=== PATIENT | female | born 1965 | race Caucasian/White ===

== ENCOUNTER 2021-11-02 00:36 | Day surgery (SDC) | payer OTHER, SELFPAY ==
[2021-10-27 16:00] VITALS: BMI 44.1
--- NOTE | 2021-11-02 08:24 | WPDANESEPPF ---
Anes - Initial Pre Proc Eval Procedure: Operation Date: 11/02/21 09:30 Proposed Procedures p Esophagogastroduodenoscopy - Robe Moore MD Date/Time: 11/02/21 08:24 Surgeon: Robe Moore MD Pre Op Diagnosis: epigastric pain, nausea Patient Data Age: 56 Gender: F Height: 1.6 m Weight: 113 kg Allergies Allergy/AdvReac Type Severity Reaction Status Date / Time erythromycin base AdvReac Unknown vomiting Verified 11/02/21 07:33 Home Medications Medication Instructions Recorded Confirmed Type duloxetine 60 mg capsule,delayed 60 mg PO BID 09/24/21 10/27/21 History release hydroxyzine HCl 50 mg tablet 50 mg PO QID PRN other 09/24/21 10/27/21 History lamotrigine 25 mg tablet 75 mg PO BID 09/24/21 10/27/21 History losartan 25 mg tablet 12.5 mg PO DAILY 09/24/21 10/27/21 History metformin 500 mg tablet 500 mg PO BID 09/24/21 10/27/21 History pantoprazole 40 mg tablet,delayed 40 mg PO BID 09/24/21 10/27/21 History release propranolol 40 mg tablet 40 mg PO BID 09/24/21 10/27/21 History spironolactone 50 2 tablet PO BID 09/24/21 10/27/21 History mg-hydrochlorothiazide 50 mg tablet tizanidine 4 mg capsule 4 mg PO TID PRN other 09/24/21 10/27/21 History tofacitinib 11 mg tablet,extended 11 mg PO DAILY 09/24/21 10/27/21 History release 24 hr (Xeljanz XR) zolpidem 10 mg tablet 10 mg PO HS PRN Sleep 09/24/21 10/27/21 History aripiprazole 2 mg tablet 2 mg PO HS 10/27/21 10/27/21 History Patient hx anesthesia problems: none Family hx anesthesia problems: none Results Review: All pre-operative results and documents have been reviewed as part of the pre-operative evaluation. [facility] Past Medical History Medical History (Updated 11/02/21 @ 08:25 by Javed Mcgee MD) Anxiety Arthritis Depression Fibromyalgia Hypertension Morbid obesity with BMI of 40.0-44.9, adult Obesity BETH on CPAP Rheumatoid arthritis Surgical History Surgical History (Updated 09/24/21 @ 13:22 by Alethea Sawyer MA) H/O sinus surgery History of History of carpal tunnel surgery History of cholecystectomy Family History Family History (Updated 09/24/21 @ 13:24 by Alethea Sawyer MA) Father Cerebrovascular accident Mother Hypertension Depression Social History Social History (Updated 09/24/21 @ 13:24 by Alethea Sawyer MA) Smoking status: Former smoker Tobacco type: cigarettes Alcohol intake: former Substance use: never Living arrangements: with family Spiritual care concerns: No Anes - Eval Final PreProcedure Day of Procedure 11/02/21 08:24 Patient weight: morbidly obese Heart: regular rate and rhythm Lungs: clear to auscultation and normal air movement Airway: Mallampati scale class II Neurological: alert and oriented Last oral intake: >/= 8 hours ASA classification: III Emergent: no Anesthetic plan: proceed Anesthesia type and monitoring: general GIVS Results Review: All pre-operative results and documents have been reviewed as part of the pre-operative evaluation. Informed Consent: The patient's anesthetic plan and its attendant risks and benefits were discussed with the patient/family/POA. Questions were solicited and answers provided to the satisfaction of the patient/family/POA.
[2021-11-02 08:56] VITALS: BP 126/77; PULSE 72; RESP 18; TEMP 36.1; O2SAT 98
[2021-11-02] MEDS: LACTATED RINGERS 1,000 ML 150 ML IV CONT (09:02)
--- NOTE | 2021-11-02 09:15 | PM.HPGS ---
History of Present Illness History of Present Illness Consent: Risks, benefits, and alternatives have been discussed and questions answered. Patient agrees to proceed with procedure. Chief complaint: epigastric pain, nausea Narrative: Shanika Nettles is a 56 year old female with post-prandial nausea, belching and bloating, ppi not helping. Never had egd. Review of Systems Constitutional: Constitutional: Denies headache(s) and Denies weakness Eyes: Eyes: Denies blurry vision ENT: Reports Normal hearing present, Denies headache(s) and Denies neck pain Cardiovascular: Cardiovascular: Denies chest pain and Denies dyspnea Respiratory: Respiratory: Denies dyspnea Gastrointestinal: Gastrointestinal: Reports no additional gastrointestinal complaints Genitourinary: Genitourinary: Denies dysuria Musculoskeletal: Musculoskeletal: Denies neck pain Integumentary/Breasts: Skin/Breast: Denies dry skin Neurologic: Reports Normal hearing present, Denies headache(s) and Denies weakness Psychiatric: Psychiatric: Denies anxiety Endocrine: Endocrine: Denies change in body appearance Hematologic/Lymphatic: Hematologic/Lymphatic: Denies easy bleeding Allergic/Immunologic: Allergic/Immunologic: Denies urticaria PMFSH Past Medical History Medical History (Updated 11/02/21 @ 09:16 by Robe Moore MD) Anxiety Arthritis Bloating Depression Fibromyalgia Hypertension Morbid obesity with BMI of 40.0-44.9, adult Nausea Obesity BETH on CPAP Rheumatoid arthritis Surgical History Surgical History (Updated 09/24/21 @ 13:22 by Alethea Sawyer MA) H/O sinus surgery History of History of carpal tunnel surgery History of cholecystectomy Family History Family History (Updated 09/24/21 @ 13:24 by Alethea Sawyer MA) Father Cerebrovascular accident Mother Hypertension Depression Social History Social History (Updated 09/24/21 @ 13:24 by Alethea Sawyer MA) Smoking status: Former smoker Tobacco type: cigarettes Alcohol intake: former Substance use: never Living arrangements: with family Spiritual care concerns: No Meds Home Medications and Allergies Home Medications Medication Instructions Recorded Confirmed Type duloxetine 60 mg capsule,delayed 60 mg PO BID 09/24/21 10/27/21 History release hydroxyzine HCl 50 mg tablet 50 mg PO QID PRN other 09/24/21 10/27/21 History lamotrigine 25 mg tablet 75 mg PO BID 09/24/21 10/27/21 History losartan 25 mg tablet 12.5 mg PO DAILY 09/24/21 10/27/21 History metformin 500 mg tablet 500 mg PO BID 09/24/21 10/27/21 History pantoprazole 40 mg tablet,delayed 40 mg PO BID 09/24/21 10/27/21 History release propranolol 40 mg tablet 40 mg PO BID 09/24/21 11/02/21 History spironolactone 50 2 tablet PO BID 09/24/21 10/27/21 History mg-hydrochlorothiazide 50 mg tablet tizanidine 4 mg capsule 4 mg PO TID PRN other 09/24/21 10/27/21 History tofacitinib 11 mg tablet,extended 11 mg PO DAILY 09/24/21 10/27/21 History release 24 hr (Xeljanz XR) zolpidem 10 mg tablet 10 mg PO HS PRN Sleep 09/24/21 10/27/21 History aripiprazole 2 mg tablet 2 mg PO HS 10/27/21 10/27/21 History Allergies Allergy/AdvReac Type Severity Reaction Status Date / Time erythromycin base AdvReac Unknown vomiting Verified 11/02/21 08:53 Vital Signs Vital Signs - 24 hr 11/02/21 08:56 Temperature 97.0 F L Pulse Rate 72 Respiratory Rate 18 Blood Pressure 126/77 Pulse Oximetry 98 Oxygen Delivery Room Air Exam Const: General: comfortable and no acute distress HENMT: General nose exam: Normal nares present Eyes: General: appearance normal, both eyes and all related structures Neck: Neck: no JVD Resp: Auscultation: clear to auscultation bilaterally Cardio: Rate: regular rate Rhythm: regular rhythm GI: Inspection: non-distended GI Palp: Yes Soft to palpation Skin: General skin exam: normal color Neuro: General: gait
[2021-11-02 09:28] VITALS: BP 104/64; PULSE 74; RESP 18; O2SAT 97
[2021-11-02 09:38] VITALS: BP 104/63; PULSE 71; RESP 18; O2SAT 97
[2021-11-02 09:48] VITALS: BP 103/60; PULSE 65; RESP 18; O2SAT 100
== END 2021-11-02 09:53 | disposition home or self-care (01) ==
PROVIDERS: PCP Family Medicine; Visit Provider Internal Medicine Gastroenterology
PROC: 0DJ08ZZ Inspection of Upper Intestinal Tract, Via Natural or Artificial Opening Endoscopic (ICD-10-PCS; CPT 43235; principal; 2021-11-02 09:30)
DX: K29.50 Unspecified chronic gastritis without bleeding (principal); K20.80 Other esophagitis without bleeding; Z79.84 Long term (current) use of oral hypoglycemic drugs; F41.8 Other specified anxiety disorders; I10 Essential (primary) hypertension; M06.9 Rheumatoid arthritis, unspecified; G47.33 Obstructive sleep apnea (adult) (pediatric); M79.7 Fibromyalgia; E66.01 Morbid (severe) obesity due to excess calories; Z68.41 Body mass index [BMI] 40.0-44.9, adult; Z87.891 Personal history of nicotine dependence
CPT/HCPCS: 43239; 88305; 88342; J2704; J7120

== ENCOUNTER 2021-11-24 08:47 | Outpatient (CLI) | payer OTHER, SELFPAY ==
--- NOTE | ~2021-11-24 | NM_ITS ---
EXAM: NM gastric emptying study DATE: 11/24/2021 14:00 CDT INDICATION: Nausea TECHNIQUE: A gastric emptying study was performed using the methodology of Celeste VALLEJO, et al. J Nucl Med 2007; 48:568-572. The patient was given a meal consisting of 2 scrambled eggs labeled with 1.1 m Ci Tc-99m sulfur colloid, 2 slices of toast, two packages of jam, and approximately 120 mL of water. Simultaneous anterior and posterior 1-min images of the abdomen were obtained with the patient supine at multiple time points over a total period of 4 hours. The geometric mean of anterior and posterior views was determined, and the percentage retention was calculated for each time point. COMPARISON: None. FINDINGS: Gastric retention of the radiotracer-labeled meal was 52%, 34%, and 2% at the 1-hour, 2-ho ur, and 4-hour time points, respectively. With this technique, apparent rapid gastric emptying is sug gested by <30% gastric retention at 1 hour. Delayed gastric emptying is defined by gastric retention of >90% at 1 hour, >60% retention at 2 hours, or >10% retention at 4 hours. IMPRESSION: 1. Normal gastric emptying. Reviewed, dictated and finalized at location A. IMPRESSION: 1. Normal gastric emptying.
== END 2021-11-24 08:48 | disposition home or self-care (01) ==
PROVIDERS: PCP Family Medicine; Visit Provider Internal Medicine Gastroenterology
DX: R11.0 Nausea (principal); R14.0 Abdominal distension (gaseous)
CPT/HCPCS: 78264; A9541

== ENCOUNTER 2024-12-28 09:33 | Outpatient (CLI) | payer OTHER, SELFPAY ==
--- NOTE | ~2024-12-28 | XR_ITS ---
EXAMINATION: XR UGIAC w barium swallow DATE: 12/28/2024 10:24 INDICATION: Gastroesophageal reflux disease without esophagitis TECHNIQUE: The patient drank thick barium, gas-producing crystals, and thin barium. Fluoroscopic spot radiographs of the hypopharynx, esophagus, stomach and proximal small bowel were obtained. A total o f 1478 fluoroscopic images were recorded. Fluoroscopy exposure time was 2.4 minutes. Total DAP was 17 .5 Gycm^2. COMPARISON: None. FINDINGS: The pharynx is symmetric and without evidence of mass lesion or mucosal irregularity. The esophagus i s normal without mass or stricture. Esophageal motility is normal. Small sliding-type hiatal hernia w ith gastric esophageal junction approximately 4 cm above the diaphragm. There was no gastroesophageal reflux with provocative maneuvers. The stomach and proximal small bowel are normal. IMPRESSION: 1. Small sliding-type hiatal hernia without gastroesophageal reflux with provocative maneuvers. Reviewed, dictated and finalized at location A. IMPRESSION: 1. Small sliding-type hiatal hernia without gastroesophageal reflux with provoc ative maneuvers.
--- OUTSIDE RECORDS SUMMARY | 2024-12-28 09:36 | XMS_ITS | Clinical Summary ---
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 Pulse 86 05/21/2016 9:30 AM MANUFACTURING TEAM MEMBER Temperature - - Respiratory Rate - - Oxygen Saturation - - Inhaled Oxygen Concentration - - Weight 108.9 kg (240 lb 3 oz) 05/21/2016 9:30 AM MANUFACTURING TEAM MEMBER Height 160 cm (5' 3) 05/21/2016 9:30 AM MANUFACTURING TEAM MEMBER Body Mass Index 42.55 05/21/2016 9:30 AM MANUFACTURING TEAM MEMBER Plan of Treatment Health Maintenance Due Date Last Done Comments Cervical Cancer Screening Pa p Smear (Age 30 to 64) Every 3 Years 1964 Colorectal Cancer Screening Colonoscopy (10 Years) 1964 Annual Physical 1967 Hepatitis C 1982 DTaP, Tdap and Td Vaccines ( 1 - Tdap) 1983 Cervical Cancer Screening Pa p with HPV Testing (Age 30 to 64) Every 5 Years 1994 Cervical Cancer Screening with HPV 1994 Mammogram Screening 2004 Pneumococcal Vaccine: 50+ Ye ars (1 of 1 - PCV) 2014 Zoster Vaccines (1 of 2) 2014 COVID-19 Vaccine ( - 2023-2 5 season) 2024 RSV Immunization or 60+ Years (1 - 1-dose 75+ series) 2039 Meningococcal B Vaccine Aged Out No l onger eligible based on patient's age to complete this topic Meningococcal Vaccine Aged Out No ramon carlos eligible based on patient's age to complete this topic RSV Immunizations Under 20 Months Aged Out No longer eligible based on patient's age to complete this topic Care Teams Machine Clothing Replacer Relationship Specialty Start Date End Date Millicent Schwab MD [address] [place] [address] [place] [address] PCP - General 08/12/14
--- OUTSIDE RECORDS SUMMARY | 2024-12-28 09:36 | XMS_ITS | Referral Summary ---
Author Organization [facility] Address [address] [place] [address] Care Team Providers Care Communication Electronic Technician Name Role Phone Tiffanie Juares Primary Care Provider [phone] Allergies Active Allergy Reactions Criticality Noted Date Comments Erythromycin Nausea only,Vomiting Reaction: Nausea, Vomiting, Medications levothyroxine sodium (TIROSINT) 25 mcg capsule take 1 capsule by oral route every day 0 0 6 Active Additional Information Patient not taking.Reported on 12/28/2023 etanercept (ENBREL) 50 mg/mL (0.98 mL) injection inject 1 milliliter by subcutaneous route every week 4 Syringe 5 4 Active Additional Information Patient not taking.Reported on 12/28/2023 oxyCODONE-acet aminophen (PERCOCET) 5-325 mg per tablet take 1 by Oral route 3 times every day as needed 90 0 4 Active Additional Information Patient not taking.Reported on 12/28/2023 predniSONE (DELTASONE) 10 mg tablet take 1 tablet by oral route every day 30 1 7 Active Additional Information Patient not taking.Reported on 12/28/2023 etanercept (ENBREL) 50 mg/mL (0.98 mL) injection inject 1 milliliter by subcutaneous route every week 4 Syringe 11 4 Active Additional Information Patient not taking.Reported on 12/28/[address] (CYMBALTA) 60 mg capsule take 2 capsule by oral route every day 60 6 4 Active progesterone 50 mg/mL injection inject 0.1 milliliter by intramuscular route every day 0 vial 0 3 Active Additional Information Patient not taking.Reported on 12/28/2023 estradiol (ESTRACE) 2 mg tablet take 1 tablet by oral route every day 0 0 3 Active estradiol-nore thindrone (MIMVEY LO) 0.5-0.1 mg per tablet take 1 tablet by oral route every day 0 0 4 Active hydroCHLOROthi azide (HYDRODIURIL) 25 mg tablet take 1 tablet by oral route every day 0 0 4 Active mirtazapine (REMERON) 45 mg tablet take 1 tablet by oral route every day before bedtime 0 0 4 Active Additional Information Patient not taking.Reported on 12/28/2023 metoprolol XL (TOPROL-XL) 200 mg 24 hr tablet take 1 tablet by oral route every day 0 0 4 Active cholestyramine (QUESTRAN) 4 gram powder take 8 grams by oral route TID for 11 days 264 0 5 Active predniSONE (DELTASONE) 5 mg tabletIndicati ons:Rheumatoid arthritis of multiple sites without rheumatoid factor (HCC) 3 po daily for 7 days, 2 po daily for 7 days, 1 po daily for 7 days 42 tablet [address] (CYMBALTA) 60 mg capsule TAKE TWO CAPSULES BY MOUTH ONCE DAILY 60 capsule 5 7 Active tofacitinib (XELJANZ XR) 11 mg tablet extended release 24 hr Take 11 mg by mouth daily. 30 tablet 11 8 Active oxyCODONE-acet aminophen (PERCOCET) 7.5-325 mg per tablet Take 1 tablet by mouth every 6 (six) hours as needed for pain. 120 tablet 8 Active tiZANidine (ZANAFLEX) 4 mg tablet Take 1 tablet (4 mg total) by mouth every 6 (six) hours as needed for muscle spasms. 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 04/26/2017 Fibromyalgia 04/26/2017 Fatigue 04/26/2017 High risk medication use 04/26/2017 BMI 40.0-44.9, adult 04/26/2017 Class 3 obesity due to excess calories in adult 04/26/2017 Social History Tobacco Use Types Packs/Day Years Used Date Smoking Tobacco: Every Day Smokeless Tobacco: Never Tobacco Cessation:Ready to Q uit: Not Asked; Counseling Given: Not Answered Alcohol Use Standard Drinks/Week Comments Yes 0 (1 standard drink = 0.6 oz pur e alcohol) Comments Unknown Sex and Gender Information Value Date Recorded Sex Assigned at Not on file Legal Sex Female 2:36 AM 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 Gender Identity Not on file Sexual Orientation Not on file Last Filed Vital Signs Vital Sign Reading Time Taken Comments Blood Pressure 130/70 12/28/2023 10:46 AM CDT Pulse 95 12/28/2023 10:46 AM CDT Temperature 36.7 C (98.1 F) 07/25/2017 3:42 PM 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 Respiratory Rate 16 12/28/2023 10:4 6 AM CDT Oxygen Saturation 98% 12/28/2023 10: 46 AM CDT Inhaled Oxygen Concentration - - Weight 102.7 kg (226 lb 6.4 oz) 024 10:46 AM CDT Height 160 cm (5' 3) 12/28/2023 10:46 AM CDT Body Mass Index 40.1 12/28/2023 10:46 AM CDT Plan of Treatment Not on file Procedures Procedure Name Priority Date/Time Associated Diagnosis Comments SERUM HEPATITIS C AB Routine 03/25/2014 1:47 PM CDT from Last 3 Months or Most Recently Relevant to Health Maintenance Results * Serum Hepatitis C ab (03/25/2014 1:47 PM CDT) HCV ab NON-REACTI VE NON-REACTI VE HISTORICAL RESULTS Hepatitis signal to cutoff ratio 0.03 <1.00 HISTORICAL RESULTS Serum 03/25/2014 1:47 PM CDT us Historical Provider LAB BLOOD ORDERABLES Courtney gonzalez Result HISTORICAL RESULTS from Last 3 Months or Most Recently Relevant to Health Maintenance Insurance [facility] MEDICAID [facility] Care Teams Communication Electronic Technician Relationship Specialty Start Date End Date Tiffanie Juares PA [address] [place] [id number] PCP - General Physician Prom Burn Off Operator 12/28/23
--- OUTSIDE RECORDS SUMMARY | 2024-12-28 09:36 | XMS_ITS | Encounter Summary ---
Author Organization [facility] Address [address] [place] [address] Care Team Providers Care Building Stonecutter Name Role Phone Tiffanie Juares PA-C Primary Care Provider [phone] Encounter Details Date Type Department Care Team (Late st Contact Info) Description 11/01/2024 Results Follow-Up [facility] - Rheumatology [address], [address] [place] [address] Ceasar Marcos DO [address] [place] [address] Social History Tobacco Use Types Packs/Day Years Used Date Smoking Tobacco: Former Cigarettes 0 Smokeless Tobacco: Never Alcohol Use Standard Drinks/Week Comments Yes 3 (1 standard drink = 0.6 oz pur e alcohol) Occasional AUDIT-C Answer Date Recorded Q1: How often do you have a drink containing alcohol? Never 02/18/2022 Q2: How many drinks containi ng alcohol do you have on a typical day when you are drinking? Patient does not drink Q3: How often do you have si x or more drinks on one occasion? Never 02/18/2022 PHQ-2 Answer Date Recorded Patient Health Questionnaire-2 Score 6 03/23/2024 Hunger Vital Sign Answer Date Recorded Within the past 12 months, y ou worried that your food would run out before you got the money to buy more. Never true 02/20/20 Within the past 12 months, t he food you bought just didn't last and you didn't have money to get more. 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 Answer Date of Assessment Author No 06/13/2018 1:13 PM Prudence Carvajal RN * Is person blind or have serious difficulty seeing? Answer Date of Assessment Author No 06/13/2018 1:13 PM BELT DRESSER Prudence Barry RN * Does person have serious difficulty walking/climbing stairs? Answer Date of Assessment Author No 06/13/2018 1:13 PM Prudence Carvajal RN * Does person have difficulty dressing/bathing? Answer Date of Assessment Author No 06/13/2018 1:13 PM Prudence Carvajal RN * Does person have difficulty doing errands alone? Answer Date of Assessment Author No 06/13/2018 1:13 PM Prudence Carvajal RN documented as of this encounter Mental Status * Does person have difficulty concentrating/remembering/making decisions? Answer Entry Date Author No 06/13/2018 1:13 PM Prudence Carvajal RN documented in this encounter Plan of Treatment Upcoming Encounters Date Type Department Care Team (Late st Contact Info) Description 02/06/2025 10:20 AM CDT Office Visit [facility] - Rheumatology [address], [facility] [address] [place] [address] Ceasar Marcos DO [address] [place] [address] documented as of this encounter Visit Diagnoses Not on filedocumented in this encounter Care Teams Building Stonecutter Relationship Specialty Start Date End Date Tiffanie Juares PA-C [address] [place] [phone] PCP - General 02/28/24 documented as of this encounter
--- OUTSIDE RECORDS SUMMARY | 2024-12-28 09:36 | XMS_ITS | Clinical Summary ---
Author Organization [facility] [employer] Address [address] [place] [address] Care Team Providers Care Basting Cleaner Name Role Phone Tiffanie Juares PA-C Primary Care Provider Source Comments [facility],non-owned Affiliates and Associated Physician Practices is amultiple site organization consisting of ambulatory clinics and hospital sitesin [place], [place], [place] and [place]. This disclosure is being madepursuant to the Care Everywhere program and may not contain all information available regarding this patient. Last updated 18.[facility] [employer] Allergies Active Allergy Reactions Criticality Noted Date Comments Erythromycin Nausea and/or Vomiting,Vomiting Low Reaction: Nausea, Vomiting, Reaction: Nausea, Vomiting, Medications * Be aware that medications may not be up to date on this document. Alwaysverify current medications with the patient. DULoxetine (CYMBALTA) 60 MG capsule 2 times daily 6 Active albuterol HFA (Proventil; Ventolin; Proair) 108 (90 Base) MCG/ACT inhaler as needed 7 Active spironolactone (Aldactone) 100 MG tablet Take 1 (one) tablet by mouth 2 times daily 2 Active propranolol (Inderal) 40 MG tablet Take 1 (one) tablet by mouth 2 times daily 2 Active lamoTRIgine (LaMICtal) 25 MG tablet Take 1 (one) tablet by mouth 2 times daily 2 Active losartan (Cozaar) 25 MG tablet Take 0.5 (one-half) tablet by mouth once daily 2 Active pantoprazole EC (Protonix) 40 MG tablet Take 1 (one) tablet by mouth 2 times daily 2 Active naproxen (Naprosyn) 500 MG tabletIndicatio ns:Seropositive rheumatoid arthritis (HCC) Take 1 (one) tablet by mouth 2 times daily 60 tablet 5 Active tofacitinib 24hr (Xeljanz XR) 11 MG tabletIndicatio ns:Rheumatoid Arthritis Take 1 (one) tablet by mouth once daily Reasons: Rheumatoid Arthritis 90 tablet 5 Active Active Problems Problem Noted Date Diagnosed Date Chronic depression 11/06/2024 Overview (11/06/2024): Longstanding hx chronic depression since age 17 previously followed by Psychiatry + counselor. Strongly encouraged to follow-up with PCP. Await TCMS consult. Spinal column pain 11/06/2024 Overview (11/06/2024): Previous MRI findings of multilevel degenerative spinal changes with fibromyalgia also probably enhancing pain symptoms. Psychosocial stressors 11/06/2024 Overview (11/06/2024): Lives with her ex- (currently unable to afford her own independent housing) along with her children and also with conflict between several friends. Primary osteoarthritis of both knees 10/20/2023 Overview (10/20/2023): Outside knee x-rays reviewed as dated from 02/03/2023 and 03/24/2023 identified mild medial compartment DJD appearance. Try viscosupplement injection? 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 Continue to check CBC and CMP every 12 weeks for safe use of Xeljanz. Assessment & Plan (11/06/2024 9:58 AM CDT): Outside lab collected 11/02/2024 without identification of hematologic or hepatotoxicity side effects from the continued use of a oral Janus kinase inhibitor (tofacitinib). Recommend continued monitoring of CBC with differential and CMP every 12 weeks. Seropositive rheumatoid arthritis 07/06/2022 Overview (07/06/2022): Consideration for active inflammatory arthritis with prior history of RA and tender soft tissue swelling over the R/L#2.3 MCP joints. Restaging lab/xrays. S/P ABHIJIT (total abdominal hysterectomy) Chronic pain syndrome 10/21/2017 BMI 40.0-44.9, adult 04/26/2017 Class 3 obesity due to excess calories in adult 04/26/2017 Fatigue 04/26/2017 Fibromyalgia syndrome 04/26/2017 Amenorrhea 06/12/2015 Palpitations 06/12/2015 Abdominal adhesions Resolved Problems Problem Noted Date Diagnosed Date Resolved Date High risk medications (not a nticoagulants) long-term use (Xeljanz) 07/06/2022 03/17/2023 Overview (07/06/2022): Reported monitoring lab last checked 1 month ago not available for review. Monitor CBC/liver enzymes every 12 weeks. Hold Xeljanz for hemoglobin less than 8 gm. Cysts of both ovaries 02/18/20222021 Tendinopathy of rotator cuff, left 01/20/2018 07/06/2022 Tendinopathy of right rotator cuff 05/06/2017 07/06/2022 Rheumatoid arthritis of [facility] sites without rheumatoid factor 06/12/2015 03/17/2023 Overview (09/12/2017): Overview: Complaints - 10 y. Diagnosis 5 y Bilateral ovarian cysts 01/29 Encounters Date Type Department Care Team Description 11/06/2024 10:00 AM CDT Office Visit [facility] - Rheumatology [address] [place] [address], [address] [place] [address] Ceasar Marcos DO Seropositive rheumatoid arthritis (HCC) (Primary Dx); keno terminal operator (current) use of janus kinase inhibitor (Xeljanz); Fibromyalgia syndrome; Primary osteoarthritis of both knees; Chronic depression; Psychosocial stressors; Spinal column pain 11/01/2024 Results Follow-Up [facility] - Rheumatology [address], [address] [place] [address] Ceasar Marcos DO 10/19/2024 Orders Only [facility] - Rheumatology [address], [address] [place] [address] Ceasar Marcos DO retirement (current) use of janus kinase inhibitor (Xeljanz) 10/02/2024 Refill [facility] - Rheumatology [address], [address] [place] [address] Ceasar Marcos DO MEDICATION REFILL from Last 3 Months Family History Medical History Relation Name Comments None Known Brother None Known Father None Known Maternal Grandfather None Known Maternal Grandmother None Known Mother None Known Other None Known Paternal Grandfather None Known Paternal Grandmother None Known Sister Relation Name Status Comments Brother Father Maternal Grandfather Maternal Grandmother Mother Other Paternal Grandfather Paternal Grandmother Sister Social History Tobacco Use Types Packs/Day Years Used Date Smoking Tobacco: Former Cigarettes 0 Smokeless Tobacco: Never Tobacco Cessation:Counseling Given: Not Answered Alcohol Use Standard Drinks/Week Comments Yes 3 [...] Date Recorded Patient Health Questionnaire-2 Score 6 11/06/2024 Hunger Vital Sign Answer Date Recorded Within [...] on file 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 Gender Identity Not on file Sexual Orientation Not on file Last Filed Vital Signs Vital Sign Reading Time Taken Comments Blood Pressure 100/60 11/06/2024 9:47 AM CDT Pulse 71 11/06/2024 9:47 AM CDT Temperature 36.1 C (97 F) 11/06/2024 9:47 AM CDT Respiratory Rate 16 11/06/2024 9:47 AM CDT Oxygen Saturation 97% 11/06/2024 9:47 AM CDT Inhaled Oxygen Concentration - - Weight 95.3 kg (210 lb) 11/06/2024 9:47 AM CDT Height 160 cm (5' 3) 03/23/2024 9:58 AM CDT Body Mass Index 37.2 03/23/2024 9:58 AM CDT Plan of Treatment Upcoming Encounters Date Type Department Care Team (Late st Contact Info) Description 02/06/2025 10:20 AM CDT Office Visit [facility] - Rheumatology [address], [address] [place] [address] Ceasar Marcos, [address] [place] [address] Health Maintenance Due Date Last Done Comments COLOGUARD (AGES 45-75) - COLON CA SCREENING 1964 COLON MONITORING 1964 COLONOSCOPY - COLON CA SCREENING 1964 CT COLONOGRAPHY - COLON CA SCREENING 1964 Colorectal Cancer Screening 1964 FIT - COLON CA SCREENING 1964 FLEX SIG - COLON CA SCREENING 1964 LIPID TESTING 1964 HIV SCREENING 1979 HEPATITIS C SCREENING 06/26/1982 DTAP/TDAP/TD VACCINES (1 - Tdap) 1983 PNEUMOCOCCAL VACCINE 50+ (1 of 1 - PCV) 2014 ZOSTER VACCINE (1 of 2) 2014 COVID-19 VACCINE (1 - season) 2024 Respiratory Syncytial Virus (RSV) Vaccine Pt: or over 60 yrs (1 - Risk 60-74 years 1-dose series) 2024 INFLUENZA VACCINE (#1) 2025 3, 05/06/2022, 05/25/2021 MAMMOGRAM 03/17/2025 03/17/2023 SCREENING FOR DIABETES 11/01/2027 5, 08/10/2024, 06/13/2024, Additional history exists DEPRESSION SCREENING Completed 11/06/2024 HEPATITIS B VACCINE Aged Out No longe r eligible based on patient's age to complete this topic HIB VACCINE Aged Out No longer eligi ble based on patient's age to complete this topic HPV VACCINE Aged Out No longer eligi ble based on patient's age to complete this topic MENINGOCOCCAL (Group B) VACCINE SHARED DECISION-MAKING Aged Out No longer eligible based on patient's age to complete this topic MENINGOCOCCAL GROUPS A/C/Y/W VACCINE Aged Out No longer eligible based on patient's age to complete this topic Procedures Procedure Name Priority Date/Time Associated Diagnosis Comments COMPREHENSIVE METABOLIC PANEL Routine 10/31/2024 retirement (current) use of janus kinase inhibitor (Xeljanz) CBC W AUTO DIFFERENTIAL Routine 10/31/2024 keno terminal operator (current) use of janus kinase inhibitor (Xeljanz) MAMMO BILAT SCREENING W YUE Routine 03/17/2023 11:44 AM CDT Visit for screening mammogram from Last 3 Months or Most Recently Relevant to Health Maintenance Results * CBC WITH DIFFERENTIAL (10/31/2024) Blood BLOOD SPECIMEN / Unknown us Ceasar Marcos DO LAB - HEMATOLOGY ORDERABLES Courtney l Result OTHER LAB * COMPREHENSIVE METABOLIC PANEL (10/31/2024) Blood BLOOD SPECIMEN / Unknown us Ceasar Marcos DO LAB - CHEMISTRY ORDERABLES Final Result OTHER LAB * MAMMO BILAT SCREENING W YUE (03/17/2023 11:44 AM CDT) Anatomical Region Laterality Modality Breast Bilateral Mammography 03/24/2023 10:5 3 AM CDT Narrative 03/24/2023 10:56 AM CDT EXAMINATION: Digital screening mammogram. Low-dose full-field digital breast tomosynthesis examination was performed with synthetic 2D images. Computer assisted detection was utilized. DATE: 03/17/2023 11:45 AM PRIOR: Prior mammogram just received from an outside facility dated 07/03/2020. BREAST PARENCHYMAL DENSITY: The breasts are heterogeneously dense, which may obscure small masses. FINDINGS: Questioned dominant mass in the outer central posterior right breast. No suspicious masses, areas of architectural distortion or microcalcifications are evident on synthetic 2D mammogram or tomosynthesis images of the left breast. Additional bilateral oval circumscribed masses are similar compared to the prior exam and considered benign. ASSESSMENT: BIRADS Category 0: Incomplete - Needs additional imaging evaluation. RECOMMENDATION: Right breast diagnostic mammography and possible targeted ultrasound. > Interpreting Provider: Maylin Hurt MD on 03/24/2023 10:56 AM Millicent Schwab MD MAMMO ORDERABLES Final Result from Last 3 Months or Most Recently Relevant to Health Maintenance Insurance [employer] [facility] [employer] MEDICAID - [place] Care Teams Basting Cleaner Relationship Specialty Start Date End Date Barbero, Tiffanie, PA-C [address] [place] [phone] PCP - General 02/28/24
--- OUTSIDE RECORDS SUMMARY | 2024-12-28 09:36 | XMS_ITS | Continuity of Care Document ---
Author Organization [facility] Address [address] [place] [address] [address] [place] [address] Phone Care Team Providers Care Classer Name Role Phone Carlton OD, Riaz Unavailable Unavailable Advance Directives Directive Yes / No Effective Date File Name No Information Encounters Encounter Description Practice Location Reason(s) For Visit Diagnoses Date Provider Providers Copied on Encounter [facility], [address] [place] [address] [address], [place], [place], [id number], [place] tel:[phone] [facility] Sheldonate Sumner No Information Dec-1 0-200 3 Carlton OD Riaz. [address] , [address], [place], [address], [place]. tel:[phone] Family History Family Member Type Diagnosis Age At Onset No Information Payers Payer name Insurance type Covered green party ID Authoriza tion(s) [facility] Commercial CI [id number] Social History Type Description Quantity Date Captured Comments Sex Female Smoking Status No Information Chief Complaint And Reason For Visit No Information Reason For Referral Reason For Referral No Information History Of Present Illness Encounter Date Complaint History Of Prese nt Illness No Information Functional Status Date Functional Assessmen t No Information Instructions Date Instruction Additional Infor mation No Information Assessments Type Assessment Date No Information Patient Care Teams Name Effective Dates (start - stop) Status Members No Information
--- OUTSIDE RECORDS SUMMARY | 2024-12-28 09:36 | XMS_ITS | Clinical Summary ---
Author Organization [facility] Address [address] [place] [address] Care Team Providers Care Machine Sign Writer Name Role Phone Tiffanie Juares Primary Care Provider [phone] Allergies Active Allergy Reactions Criticality Noted Date [...] due to excess calories in adult 04/26/2017 Surgical History Surgery Date Site/Laterality Comments SECTION section KNEE ARTHROSCOPY Arthroscopy knee CHOLECYSTECTOMY Cholecystectomy HERNIA REPAIR Hernia repair CARPAL TUNNEL RELEASE Carpal tunnel release Medical History Medical History Date Comments Hx Other Medical chronic fatigue Hx Other Medical stomach ulcers Hx Other Medical sinus problems Anxiety disorder Anxiety Depression Depression Hx Other Medical sinus Hx Other Medical foot surgery Hx Other Medical R Shoulder Hx Other Medical fibromyalgia; C omments: JUVENTINO 03/01/2014 - Hx Other Medical rheumatoid arth ritis; Comments: JUVENTINO 03/01/2014 - Hypertension Hypertension Family History Medical History Relation Name Comments Diabetes Other Family history of Diabetes mellitus; Hypertension Other Family history of Hypertension; Osteoarthritis Other Family histor y of Osteoarthritis; Relation Name Status Comments Other Social History Tobacco Use Types Packs/Day Years Used Date Smoking Tobacco: Every Day Smokeless Tobacco: Never Tobacco Cessation:Ready to Q uit: Not Asked; Counseling Given: Not Answered Alcohol Use Standard Drinks/Week Comments Yes 0 (1 standard drink = 0.6 oz pur e alcohol) Comments Unknown Sex and Gender Information Value Date Recorded Sex Assigned at Not on file 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 Gender Identity Not on file Sexual Orientation Not on file Obstetrics History Last Filed Vital Signs Vital Sign Reading Time Taken Comments Blood Pressure 130/70 12/28/2023 10:46 AM CDT Pulse 95 12/28/2023 10:46 AM CDT Temperature 36.7 C (98.1 F) 07/25/2017 3:42 PM SPRING UPHOLSTERER Respiratory Rate 16 12/28/2023 10:4 6 AM CDT Oxygen Saturation 98% 12/28/2023 10: 46 AM CDT Inhaled Oxygen Concentration - - Weight 102.7 kg (226 lb 6.4 oz) 024 10:46 AM CDT Height 160 cm (5' 3) 12/28/2023 10:46 AM CDT Body Mass Index 40.1 12/28/2023 10:46 AM CDT Plan of Treatment Health Maintenance Due Date Last Done Comments Cervical Cancer Screening 1964 Colon Cancer Screening-Colonoscopy 1964 Depression Screening 1964 DTaP/Tdap/Td Vaccine (1 - Tdap) 1975 Hepatitis B Screening 1982 Regular Well Visit/Exam 18-64 1982 Pneumococcal vaccine <65 (1 of 2 - PCV) 1983 Zoster Vaccine (1 of 2) 2014 Breast Cancer Screening-Mammogram 03/24/2024 023, 03/17/2023 Influenza Vaccine (#1) 2025 3, 05/06/2022, 05/25/2021, Additional history exists Hepatitis C Screening Completed 03/25/2014, 013 Procedures Procedure Name Priority Date/Time Associated Diagnosis [...] Most Recently Relevant to Health Maintenance Insurance [facility] Care Teams Machine Sign Writer Relationship Specialty Start Date End Date Tiffanie Juares PA [address] [place] [id number] PCP - General Physician Filling Hauler 12/28/23
== END 2024-12-28 09:34 | disposition home or self-care (01) ==
LOC: ANHIMG 09:34
PROVIDERS: PCP Family Medicine; Visit Provider Nurse Practitioner Family
DX: K44.9 Diaphragmatic hernia without obstruction or gangrene (principal); R11.2 Nausea with vomiting, unspecified
CPT/HCPCS: 74246